=== PATIENT | female | born 1980 | race Two or more races ===

== ENCOUNTER 2021-07-03 23:47 | Emergency (ER) | payer BC ==
[~2021-07-03] VITALS: Ht 162.6 cm; Wt 56.7 kg
--- NOTE | 2021-07-04 00:04 | NUR ---
PATIENT BIBRA 89 FROM HOME WITH C/O PALPITATION FOR THE PAST 30 MIN. PATIENT STATED FELLING PRESSEURE ON LUE AND LEFT SHOULDER. PATIENT A/O X 4, RR EVEN AND UNLABORED, NO SOB NOTED. PATIENT CONNECTED MONITORS
--- NOTE | 2021-07-04 00:05 | NUR ---
PT PROVIDED WITH WARM BLANKETS
--- NOTE | 2021-07-04 00:25 | NUR ---
RAD AT BEDSIDE
[2021-07-04 00:33] LABS: BASOPHILS % (AUTO) 0.2 % (0.0-2.0); HEMATOCRIT 40 % (33-45); HEMOGLOBIN 13.9 g/dL (11.5-14.8); LYMPHOCYTES # (AUTO) 0.6 K/uL (0.8-4.8); LYMPHOCYTES % (AUTO) 7.8 % (20.0-44.0); MEAN CORPUSCULAR HGB CONC 35 g/dl (31.0-36.0); MEAN CORPUSCULAR VOLUME 87 fL (82-100); MONOCYTES # (AUTO) 0.1 K/uL (0.1-1.30); MONOCYTES % (AUTO) 1.6 % (2.0-12.0); NEUTROPHILS # (AUTO) 7.2 K/uL (1.8-8.9); NEUTROPHILS % (AUTO) 90.4 % (43.0-81.0); PLATELET COUNT (AUTO) 242 K/uL (150-450); RED BLOOD CELL COUNT(AUTO) 4.53 MIL/uL (4.0-5.2); WHITE BLOOD COUNT (AUTO) 7.9 K/uL (4.3-11.0)
[2021-07-04 00:42] LABS: CALCIUM, SERUM 9.8 mg/dL (8.5-10.1); CARBON DIOXIDE 25 mmol/L (21-32); CHLORIDE 94 mmol/L (98-107); CREATININE 0.7 mg/dL (0.6-1.3); GLUCOSE 178 mg/dL (74-106); POTASSIUM 4.4 mmol/L (3.5-5.1); SODIUM SERUM 130 mmol/L (136-145); UREA NITROGEN, BLOOD 6 mg/dL (7-18)
[2021-07-04] MEDS ORDERED: IV NS 0.9% 1,000 ML BAG IV ONE (02:00)
--- NOTE | 2021-07-04 02:44 | NUR ---
Patient discharged to home in stable condition. Written and verbal after care instructions given. Patient verbalizes understanding of instruction.
[2021-07-04 03:51] VITALS: BP 136/84
== END 2021-07-04 02:44 | disposition home or self-care (01) ==
LOC: ER 23:49
DX: R00.2 Palpitations (principal); E87.1 Hypo-osmolality and hyponatremia; Z91.048 Other nonmedicinal substance allergy status; Z60.2 Problems related to living alone
CPT/HCPCS: 36415; 71045-TC; 80048-TC; 84484-TC; 84702-TC; 85025-TC; J7030